=== PATIENT | male | born 1965 | race African-American/Black ===

== ENCOUNTER → 2021-11-24 | Day surgery (SDC) | payer MEDICAID ==
[~2021-11-24] VITALS: Ht 177.8 cm; Wt 90.7 kg
[~2021-11-24] MED LIST: ACYC200C31 PO; AMLO10TA80 PO; ATOR20TA65 PO; BUPIVACAINE HCL 0.5% (5MG/ML) 50ML ONE; DEXAMETHASONE 4MG/ML 1ML VIAL ONE; DOCU-155 PO; FENTANYL CITRATE/PF 50MCG/ML 2ML VIAL IV PRN; HYDROMORPHONE HCL/PF 2MG/ML CPJ ONE; LACTATED RINGERS 1,000 ML IV SCH; METOCLOPRAMIDE HCL 10MG/2ML VIAL ONE; MIDAZOLAM HCL 2 MG/2 ML VIAL ONE; NAPR500T7 PO; OMEP40CA20 PO; ONDANSETRON HCL 4MG/2ML INJ IV PRN; ONDANSETRON HCL 4MG/2ML INJ ONE; PROPOFOL 200MG/20ML VIAL IV ONE; ROCURONIUM BROMIDE 10MG/ML VIAL 5ML IV ONE; SKIN ADHESIVE 0.7 GM EA TOP ONE; SUCCINYLCHOLINE CHLORIDE 200MG/10ML IV ONE
== END | disposition home or self-care (01) ==
LOC: OR 08:44
PROVIDERS: ATTEND Surgery
DX: K43.9 Ventral hernia without obstruction or gangrene (principal); I10 Essential (primary) hypertension; E78.00 Pure hypercholesterolemia, unspecified; M19.90 Unspecified osteoarthritis, unspecified site; K21.9 Gastro-esophageal reflux disease without esophagitis; Z79.899 Other long term (current) drug therapy; Z98.890 Other specified postprocedural states; Z20.822 Contact with and (suspected) exposure to COVID-19
CPT/HCPCS: 49652; 87426; C1781; C9803; J0330; J1100; J1170; J2250; J2405; J2704; J2765; J3490; J7030